=== PATIENT | male | born 1945 | race Caucasian/White ===

== ENCOUNTER 2017-08-13 13:48 | Day surgery (SDC) | payer MEDICARE | END 2017-08-13 15:30 | disposition home or self-care (01) | LOC: WOUND CARE 13:48 | PROVIDERS: ATTEND Family Medicine | DX: Z93.3 Colostomy status (principal); I10 Essential (primary) hypertension; E78.5 Hyperlipidemia, unspecified; Z85.038 Personal history of other malignant neoplasm of large intestine; Z12.5 Encounter for screening for malignant neoplasm of prostate | CPT/HCPCS: 17250 ==

== ENCOUNTER 2018-07-01 15:53 | Outpatient (CLI) | payer MEDICARE | END 2018-07-01 23:59 | disposition home or self-care (01) | LOC: VAS 15:53 | PROVIDERS: ATTEND Family Medicine | DX: R59.0 Localized enlarged lymph nodes (principal); M79.89 Other specified soft tissue disorders | CPT/HCPCS: 93971 ==

== ENCOUNTER 2018-09-02 11:17 | Day surgery (SDC) | payer MEDICARE ==
[~2018-09-02] VITALS: Ht 181.6 cm; Wt 93.2 kg
[2018-09-02 11:26] VITALS: BP 173/95
[2018-09-02] MEDS ORDERED: FENO145T36 PO (11:34)
[2018-09-02] MEDS ORDERED: TAMS0.4C32 PO (11:34)
[2018-09-02] MEDS ORDERED: AMLO1CAP6 PO (11:35)
[2018-09-02] MEDS ORDERED: METO-411 PO (11:36)
[2018-09-02] MEDS ORDERED: CLON0.2T PO (11:37)
[2018-09-02] MEDS ORDERED: fentaNYL/PF 50MCG/1 ML 2ML syringe ONE (12:01)
[2018-09-02] MEDS ORDERED: MIDAZolam 5mg/5ml vial ONE (12:01)
[2018-09-02 13:14] VITALS: BP 125/66
[2018-09-02 13:19] VITALS: BP 126/63
[2018-09-02 13:29] VITALS: BP 113/54
[2018-09-02 13:39] VITALS: BP 129/70
== END 2018-09-02 14:00 | disposition home or self-care (01) ==
LOC: GI LAB 11:17
PROVIDERS: ATTEND Internal Medicine Gastroenterology
DX: Z12.11 Encounter for screening for malignant neoplasm of colon (principal); D12.2 Benign neoplasm of ascending colon; D12.4 Benign neoplasm of descending colon; I10 Essential (primary) hypertension; E78.5 Hyperlipidemia, unspecified; N40.0 Benign prostatic hyperplasia without lower urinary tract symptoms; Z85.048 Personal history of other malignant neoplasm of rectum, rectosigmoid junction, and anus; Z86.010 Personal history of colon polyps; Z87.2 Personal history of diseases of the skin and subcutaneous tissue; Z93.3 Colostomy status; Z92.21 Personal history of antineoplastic chemotherapy; Z92.3 Personal history of irradiation; Z98.890 Other specified postprocedural states; Z79.899 Other long term (current) drug therapy
CPT/HCPCS: 44394; G0500; J2250; J3010; J7030; 88305; 99152; 99153; A4620